=== PATIENT | female | born 1980 | race African-American/Black ===

== ENCOUNTER 2016-08-28 13:30 | Outpatient (RCR) | payer BC ==
[~2016-08-28 13:30] MED LIST: CELEXA40 MG PO; ORTHO-NOVUM 7/71 TA1 PO; PRENATAL1 TA7 PO; ZANAFLEX CAPSULE2 MG PO; ZOLOFT 25MG25 MG PO
== END 2016-11-04 | disposition home or self-care (01) ==
LOC: WSPT
DX: G11.4 Hereditary spastic paraplegia (principal)

== ENCOUNTER 2016-12-11 11:14 | Outpatient (RCR) | payer BC | END 2016-12-11 11:36 | disposition home or self-care (01) | LOC: WSPT 11:14 | DX: G11.4 Hereditary spastic paraplegia (principal); M25.562 Pain in left knee ==